=== PATIENT | male | born 1965 | race Hispanic/Latino ===

== ENCOUNTER 2019-02-17 10:41 | Observation (INO) | payer OTHER ==
[2019-02-17] VITALS (26 sets, daily range): BP systolic 102–143; BP diastolic 63–94
[~2019-02-17] VITALS: Ht 170.2 cm; Wt 80.8 kg
[2019-02-17] MEDS ORDERED: LACTATED RINGERS 1000ML 1,000 ML IV ONE (12:16)
[2019-02-17] MEDS ORDERED: LIDOCAINE HCL 1% 20 ML VIAL ONE (12:35)
[2019-02-17] MEDS ORDERED: BUPIVACAINE/PF 0.5% 30ML VIAL ONE (12:35)
[2019-02-17] MEDS ORDERED: MIDAZOLAM HCL 1 MG/ML 2ML VIAL ONE (13:16)
[2019-02-17] MEDS ORDERED: PROPOFOL 10 MG/ML 20ML VIAL IV ONE ×2 (13:21→13:32)
[2019-02-17] MEDS ORDERED: CEFAZOLIN SODIUM 1 GM VIAL ONE (13:34)
[2019-02-17] MEDS ORDERED: GLYCOPYRROLATE 1 MG/5 ML SYRINGE ONE (13:35)
[2019-02-17] MEDS ORDERED: ONDANSETRON HCL 4 MG/2 ML VIAL ONE (13:54)
--- NOTE | 2019-02-17 15:40 | NUR ---
POST OP TRANSFER RECEIVED REPORT ON PATIENT FROM POST OP, PATIENT STABLE AT TIME OF TRANSFER, TRANSFERRED VIA HOSPITAL BED. PATIENT AAOX3, NO S/S OF DISTRESS NOTED, AWAKE AND TALKING ABLE TO VOICE NEEDS, DRESSING TO THE LEFT FOOT NOTED WITH NO DRAINAGE NOTED.
--- NOTE | 2019-02-17 15:50 | NUR ---
ASSESSMENT PATIENT WITH NO PAIN, NO DISTRESS NOTED, RESTING IN BED, BED TO THE LOWEST POSITION CALL LIGHT WITHIN REACH.
[2019-02-17] MEDS ORDERED: HYDROMORPHONE 1 MG/1 ML AMP IVP PRN (16:30)
[2019-02-17] MEDS ORDERED: MORPHINE SULFATE 2 MG/ML 1ML SYG IVP PRN (16:30)
[2019-02-17] MEDS ORDERED: HYDROCODONE/ACETAMINOPHEN 5/325 MG TAB PO PRN (16:30)
[2019-02-18 03:46] VITALS: BP 113/82
[2019-02-18 07:47] VITALS: BP 151/60
[2019-02-18 08:21] LABS: BASOPHILS % (AUTO) 0.3 % (0.0-5.0); EOSINOPHILS % (AUTO) 2.7 % (0.0-8.0); HEMATOCRIT 45.6 % (42-54); LYMPHOCYTES % (AUTO) 12.7 % (21.0-51.0); MEAN CORPUSCULAR HEMOGLOBIN 31.1 pg (27.0-33.0); MEAN CORPUSCULAR HGB CONC 33.8 g/dL (32.0-36.0); MONOCYTES % (AUTO) 5.2 % (3.0-13.0); NEUTROPHILS % (AUTO) 79.1 % (40.0-77.0); PLATELET COUNT (AUTO) 249 K/uL (130-400); RED BLOOD CELL COUNT(AUTO) 4.95 MIL/uL (4.50-6.20); RED CELL DISTRIBUTION WIDTH 14.6 % (11.0-15.5); WHITE BLOOD COUNT (AUTO) 10.4 K/uL (4.8-10.8)
[2019-02-18 11:00] VITALS: BP 124/83
== END 2019-02-18 12:09 | disposition home or self-care (01) ==
LOC: DAH 10:41 → DAHIP 10:45 → 3BH 15:40
PROVIDERS: ADMIT Podiatrist; ATTEND Podiatrist
DX: M21.612 Bunion of left foot (principal); Z82.49 Family history of ischemic heart disease and other diseases of the circulatory system; Z83.3 Family history of diabetes mellitus; Z79.899 Other long term (current) drug therapy
CPT/HCPCS: 28292; 36415; 73630; 80048; 85025; 88304; 88311; 97116; 97161; A4649; A6446; G0378 ×24; G8978; G8979; G8980; G8981; G8982; G8983; J0690; J2250; J2405; J2704 ×2; J3490 ×2; J7120 ×2